=== PATIENT | female | born 1980 | race Asian ===

== ENCOUNTER → 2021-08-07 | Outpatient (CLI) | payer BC ==
[2021-08-07 11:06] LABS: CLARITY URINE CLEAR (CLEAR); COLOR URINE YELLOW (YELLOW); KETONES URINE NEGATIVE (NEGATIVE); LEUKOCYTE ESTERASE URINE NEGATIVE (NEGATIVE); NITRITE URINE NEGATIVE (NEGATIVE); OCCULT BLOOD URINE NEGATIVE (NEGATIVE); PH URINE 6.5 (4.5-8.0); PROTEIN URINE NEGATIVE (NEGATIVE); SPECIFIC GRAVITY URINE 1.005 (1.005-1.030); UROBILINOGEN URINE 0.2 E.U./dL (0.2-1.0)
[2021-08-07 11:14] LABS: BASOPHILS % 0.6 % (0.0-2.0); EOSINOPHILS % 0.5 % (0.0-5.0); HEMATOCRIT. 39.2 % (36.0-48.0); HEMOGLOBIN. 13.3 g/dL (12.0-16.0); LYMPHOCYTES % 41.8 % (20.0-50.0); MEAN CORPUSCULAR HEMOGLOBIN 29.9 pg (28.0-32.0); MEAN CORPUSCULAR VOLUME 87.8 fL (81.0-99.0); MEAN PLATELET VOLUME 8.3 fl (7.4-10.4); MONOCYTES % 6.6 % (2.0-8.0); NEUTROPHILS % 50.5 % (40.0-76.0); PLATELET 253 x1000/uL (130-400); RED BLOOD CELL COUNT 4.46 mill/uL (4.2-5.4); RED CELL DISTRIBUTION WIDTH 13.8 % (11.6-14.6)
[2021-08-07 12:17] LABS: CHLORIDE 107 mEq/L (98-107)
[2021-08-07 12:50] LABS: T4 FREE 1.03 ng/dL (0.76-1.46)
[2021-08-07 12:51] LABS: HDL CHOLESTEROL 48 mg/dL (40-59); LDL CHOLESTEROL 45 mg/dL (5-100)
[2021-08-07 22:40] LABS: VITAMIN B12 SERUM 353 pg/mL (211-911)
[2021-08-08 06:07] LABS: THYROID PEROXIDASE ANTIBODY < 8 IU/mL (0-34); VITAMIN D 25-OH 21.4 ng/mL (30.0-100.0)
== END | disposition home or self-care (01) ==
LOC: LAB 10:12
PROVIDERS: ATTEND Family Medicine
DX: Z00.00 Encounter for general adult medical examination without abnormal findings (principal)
CPT/HCPCS: 36415; 80053; 80061; 81003; 82306; 82607; 83036; 84439; 84443; 84480; 85025; 86376

== ENCOUNTER → 2024-01-01 | Outpatient (CLI) | payer BC ==
[2024-01-01 10:01] LABS: BASOPHILS % 0.3 % (0.0-2.0); EOSINOPHILS % 0.4 % (0.0-5.0); HEMATOCRIT. 41.6 % (36.0-48.0); MEAN CORPUSCULAR HEMOGLOBIN 29.9 pg (28.0-32.0); MEAN CORPUSCULAR HGB CONC 33.6 g/dL (31.0-37.0); MEAN CORPUSCULAR VOLUME 88.8 fL (81.0-99.0); MEAN PLATELET VOLUME 7.7 fl (7.4-10.4); MONOCYTES % 6.9 % (2.0-8.0); NEUTROPHILS % 58.4 % (40.0-76.0); PLATELET 285 x1000/uL (130-400); RED BLOOD CELL COUNT 4.69 mill/uL (4.2-5.4); RED CELL DISTRIBUTION WIDTH 13.6 % (11.6-14.6); WHITE BLOOD COUNT 6.7 x1000/uL (4.5-11.0)
[2024-01-01 10:06] LABS: CLARITY URINE CLEAR (CLEAR); COLOR URINE YELLOW (YELLOW); GLUCOSE URINE NEGATIVE (NEGATIVE); KETONES URINE NEGATIVE (NEGATIVE); LEUKOCYTE ESTERASE URINE NEGATIVE (NEGATIVE); NITRITE URINE NEGATIVE (NEGATIVE); OCCULT BLOOD URINE TRACE (NEGATIVE); PH URINE 5.5 (4.5-8.0); PROTEIN URINE NEGATIVE (NEGATIVE); SPECIFIC GRAVITY URINE 1.018 (1.005-1.030); UROBILINOGEN URINE 0.2 E.U./dL (0.2-1.0)
[2024-01-01 10:35] LABS: ALANINE AMINOTRANSFERASE 24 IU/L (10-49); ALBUMIN 4.7 g/dL (3.2-4.8); ASPARTATE AMINOTRANSFERASE 20 IU/L (<34); BILIRUBIN TOTAL 0.7 mg/dL (0.1-1.0); C REACTIVE PROTEIN QUANT 0.3 mg/L (0.0-3.0); CALCIUM 9.1 mg/dL (8.7-10.4); CARBON DIOXIDE 28 mEq/L (21-32); CHLORIDE 104 mEq/L (98-107); CHOLESTEROL 115 mg/dL (<200); CREATININE 0.6 mg/dL (0.6-1.0); FERRITIN 74 ng/mL (10-291); FOLIC ACID (FOLATE) SERUM 17.67 ng/mL (>5.38); GLUCOSE 103 mg/dL (70-105); HDL CHOLESTEROL 44 mg/dL (>65); IRON 117 ug/dL (50-170); LDL CHOLESTEROL 41 mg/dL (5-100); POTASSIUM 3.6 mEq/L (3.5-5.1); PROTEIN TOTAL 8.2 g/dL (6.0-8.3); SODIUM 136 mEq/L (136-145); THYROID STIMULATING HORMONE 1.79 uIU/mL (0.55-4.78); TOTAL IRON BINDING CAPACITY 234 ug/dl (250-425); TRIGLYCERIDE 112 mg/dL (0-150); UREA NITROGEN BLOOD 10 mg/dL (9-23); VITAMIN B12 SERUM 491 pg/mL (211-911)
[2024-01-01 10:36] LABS: BACTERIA URINE TRACE; RBC URINE 0-2 /hpf (0-2); SQUAMOUS EPITHELIAL CELL URINE 2+ /lpf (RARE/1+); WBC URINE 0-2 /hpf (0-2); YEAST URINE NONE SEEN
[2024-01-01 11:46] LABS: ERYTHROCYTE SEDIMENTATION RATE 11 mm/hr (0-20)
[2024-01-02 08:09] LABS: ANTI-NUCLEAR ANTIBODIES DIRECT Negative (Negative); VITAMIN D 25-OH 16.3 ng/mL (30.0-100.0)
== END | disposition home or self-care (01) ==
LOC: LAB 09:11
PROVIDERS: ATTEND Internal Medicine Geriatric Medicine
DX: Z00.01 Encounter for general adult medical examination with abnormal findings (principal); N39.0 Urinary tract infection, site not specified
CPT/HCPCS: 36415; 80053; 80061; 81003; 82306; 82607; 82728; 82746; 83036; 83540; 83550; 84443; 85025; 85651; 86038; 86140; 86592

== ENCOUNTER → 2024-01-06 | Outpatient (CLI) | payer BC | END | disposition home or self-care (01) | LOC: RAD 12:54 | PROVIDERS: ATTEND Internal Medicine Geriatric Medicine | DX: M47.27 Other spondylosis with radiculopathy, lumbosacral region (principal); M79.605 Pain in left leg; M48.07 Spinal stenosis, lumbosacral region | CPT/HCPCS: 72100; 73502 ==

== ENCOUNTER → 2024-01-07 | Outpatient (CLI) | payer BC | END | disposition home or self-care (01) | LOC: MAMMO 11:03 | PROVIDERS: ATTEND Internal Medicine Geriatric Medicine | DX: Z12.31 Encounter for screening mammogram for malignant neoplasm of breast (principal) | CPT/HCPCS: 77063; 77067 ==

== ENCOUNTER → 2024-02-12 | Outpatient (CLI) | payer BC | END | disposition home or self-care (01) | LOC: MRI 13:22 | PROVIDERS: ATTEND Internal Medicine Geriatric Medicine | DX: M51.25 Other intervertebral disc displacement, thoracolumbar region (principal); M51.27 Other intervertebral disc displacement, lumbosacral region; M48.061 Spinal stenosis, lumbar region without neurogenic claudication; M79.662 Pain in left lower leg; G95.81 Conus medullaris syndrome | CPT/HCPCS: 72148 ==